=== PATIENT | female | born 1975 | race Caucasian/White ===

== ENCOUNTER → 2024-01-29 | Outpatient (CLI) | payer OTHER ==
[2024-01-29 21:42] VITALS: PULSE 91; RESP 12
[2024-01-29 22:13] VITALS: PULSE 91; RESP 18
[2024-01-29 22:30] VITALS: PULSE 103; RESP 16
[2024-01-29 23:08] VITALS: PULSE 106; RESP 18
[2024-01-29 23:37] VITALS: PULSE 100; RESP 18
[2024-01-30] VITALS (11 sets, daily range): PULSE 77–95; RESP 12–20
== END | disposition home or self-care (01) ==
LOC: SLP 20:33
PROVIDERS: ATTEND Physician Assistant Medical
DX: G47.8 Other sleep disorders (principal)
CPT/HCPCS: 95810

== ENCOUNTER → 2024-02-12 | Outpatient (CLI) | payer OTHER ==
[2024-02-12 21:40] VITALS: PULSE 101; RESP 14
[2024-02-12 22:28] VITALS: PULSE 93; RESP 19
[2024-02-12 22:48] VITALS: PULSE 99; RESP 21
[2024-02-12 23:30] VITALS: PULSE 101; RESP 22
[2024-02-12 23:56] VITALS: PULSE 98; RESP 20
[2024-02-13] VITALS (9 sets, daily range): PULSE 81–98; RESP 12–27
== END | disposition home or self-care (01) ==
LOC: SLP 19:46
PROVIDERS: ATTEND Physician Assistant Medical
DX: G47.33 Obstructive sleep apnea (adult) (pediatric) (principal); G47.8 Other sleep disorders; R09.02 Hypoxemia
CPT/HCPCS: 95811

== ENCOUNTER → 2024-07-20 | Outpatient (CLI) | payer OTHER ==
--- NOTE | 2024-07-20 16:42 | HMCIMG ---
MR ELBOW RIGHT W/O HISTORY: Pain status post fall in November COMPARISON: None TECHNIQUE: MRI of the right elbow was performed utilizing multiple pulse sequences in axial, coronal and sagittal planes. Patient was not given contrast through intravenous route. FINDINGS: Abnormal increased signal intensity is seen involving the superior half, proximal ulna and radial aspect of the distal humerus suggestive of bone bruise (microtrabecular fracture). Nondisplaced fracture cannot excluded. Superimposed inflammatory process cannot be excluded. Small amount of joint effusion is seen. The brachialis, biceps and triceps tendon appears to be grossly intact. The medial and lateral collateral ligaments are intact. Small joint effusion is seen. IMPRESSION: 1. Bone bruise (microtrabecular fracture) is seen of the right elbow as described above. Small joint effusion is seen.
== END | disposition home or self-care (01) ==
LOC: RAH 14:21
PROVIDERS: ATTEND Student in an Organized Health Care Education/Training Program
DX: S82.154A Nondisplaced fracture of right tibial tuberosity, initial encounter for closed fracture (principal); M25.421 Effusion, right elbow; S50.01XA Contusion of right elbow, initial encounter; X58.XXXA Exposure to other specified factors, initial encounter; Y93.89 Activity, other specified; Y92.89 Other specified places as the place of occurrence of the external cause; Y99.8 Other external cause status
CPT/HCPCS: 73221